=== PATIENT | male | born 1960 | race Caucasian/White ===

== ENCOUNTER 2016-04-08 21:10 | Observation (INO) | payer BC, OTHER ==
--- NOTE | 2016-04-08 21:34 | ERNOTE ---
Chest Pain/Cardiac HPI Chief Complaint: Chest Pain Time Seen by Provider: 04/08/16 21:20 Source: patient Exam Limitations: no limitations Immunizations: IMMUNIZATION HX Immunizations Up to Date Yes History of Influenza Vaccine Yes Hx Pneumococcal Vaccination No Allergies/Adverse Reactions: Allergies No Known Allergies Allergy (Unverified 10/29/14 10:14) Home Medications: HOME MEDICATIONS Fluticasone/Vilanterol [Breo Ellipta 100-25 Mcg INH] 1 inh INH DAILY 10/29/14 [ Last Taken Unknown] Isosorbide Mononitrate [Imdur] 60 mg PO DAILY 10/29/14 [Last Taken Unknown] Lisinopril [Zestril] 10 mg PO DAILY 10/29/14 [Last Taken Unknown] Nitroglycerin [Nitrostat] 0.4 mg SL Q5MIN PRN 10/29/14 [Last Taken Unknown] Simvastatin [Zocor] 20 mg PO HS 10/29/14 [Last Taken Unknown] amLODIPine BESYLATE [Norvasc] 5 mg PO DAILY 10/29/14 [Last Taken Unknown] Pantoprazole Sodium [Protonix] 20 mg PO BID 04/08/16 [Last Taken Unknown] Narrative: 56 yo M with hx of FL 2 years ago, in a small branch and not stented. had chest pain onset approx 60 min [employer]OCKRO[employer] CO[employer] and took 2 nitro with moderate reduction in his pain. He then walked 150 ft and had immediate return of his pain. took another nitro and 81 mg ASA, which brought his pain from a 10/10 to 4/10 which it remains at this time. Severity/Quality: moderate, pressure Location: substernal Chest Pain Radiation: no radiation Activities at Onset: activity Modifying Factors - Improves: Present: nitroglycerin Modifying Factors - Worsens: Present: exercise Nitro Today/Relief: 0.4 mg x 3 Aspirin Treatment Today: 81 mg x 1 Associated Symptoms: Present: shortness of breath Prior Chest Pain/Cardiac Workup: Reports: heart attack Review of Systems - Review of Systems Constitutional: Present: recent illness - uri EYE: Present: no symptoms reported ENT: Present: nasal drainage Respiratory: Present: See HPI, shortness of breath. Absent: cough Cardiology: Present: chest pain Gastrointestinal/Abdominal: Absent: nausea, vomiting Genitourinary: Absent: frequency, dysuria Musculoskeletal: Present: muscle pain - spasm of his right SCM about an hour before this episode Skin: Present: no symptoms reported Neurological: Present: no symptoms reported Endocrine: Present: no symptoms reported Hematologic/Lymphatic: Present: no symptoms reported Psych: Present: no symptoms reported - Patient's Past Medical History Patient History - Cardiac/Respiratory: COPD, Hypertension, Myocardial Infarction Patient History - Surgical Procedures: Appendectomy, Other - left knee surgery - Social History Smoking Status: Former smoker Have you smoked in the past 12 months: No Do you dip or chew tobacco: No Physical Exam - Physical Exam General Appearance: Present: wd/wn, alert, no apparent distress Eye Exam: Normal inspection: bilateral Ears, Nose, Throat: Present: normal ENT inspection, hearing grossly normal Neck: Present: normal inspection, nontender Respiratory: Present: no respiratory distress, normal breath sounds, no accessory muscle use, chest nontender, lungs clear Cardiovascular/Chest: Present: regular rate, rhythm, no murmur, normal peripheral pulses Gastrointestinal/Abdominal: Present: normal bowel sounds, nontender, nondistended, soft Extremity Exam: Present: normal inspection, non-tender, no edema Neurological Exam: Present: alert, oriented, normal mood/affect, no motor/ sensory deficits Skin Exam: Present: normal color, warm/dry Lymphatic Exam: Present: no adenopathy ED Progress - Results and Orders Patient's Lab Results:: I have reviewed the patient's lab results. Results and Orders: Laboratory Tests 04/08/16 04/08/16 04/08/16 21:40 21:40 21:40 WBC 5.5 Hgb 13.8 Hct 40.7 L Plt Count 166 PT 10.2 INR (Anticoag Therapy) 0.98 PTT (Brad) 26.8 Sodium 141 Potassium 3.6 Chloride 103 Carbon Dioxide 28.0 Anion Gap 13.6 BUN 14 Creatinine 1.32 Est GFR (Non-Af Amer) 60 Random Glucose 125 H Calcium 8.9 Calcium Adj for Albumin 8.4 Total Bilirubin 0.5 AST 35 ALT 58 Alkaline Phosphatase 73 Troponin I Less than 0.017 Total Protein 8.0 Albumin 4.2 - Vital Signs Patient's Vital Signs:: I have reviewed the patient's vital signs. Vital Signs: Vital Signs 04/08/16 21:21 Temperature 35.5 C L Pulse Rate 87 Respiratory 18 Rate Blood Pressure 145/88 O2 Sat by Pulse 96 Oximetry - EKG EKG: NSR EKG read: Interp. by me - X-Ray X-Ray #1 X-Ray: chest Interpretation: Interp. by me X-ray Comments: nothing acute - Progress/Reassessment Chief Complaint: Chest Pain Progress Note-Subjective: 04/08/16 23:38 Spoke with Farzaneh San [facility] hospitalist. She agrees to admit pt for obs, serial enzymes and telemetry Departure - Departure Clinical Impression: Chest pain Qualifiers: Chest pain type: precordial chest pain Qualified Code(s): R07.2 - Precordial pain Disposition: [facility] Condition: Good
[2016-04-08] MEDS ORDERED: ASPIRIN 81 MG TAB.CHEW PO ONE (21:35)
[2016-04-08] MEDS ORDERED: ASPIRIN 81 MG TAB.CHEW ONE (21:38)
[2016-04-08 21:42] LABS: Hematocrit 40.7 % (42.0-52.0); Hemoglobin 13.8 gm/dL (13.5-18.0); Mean Cell Volume 91.7 fl (78-100); Mean Corpuscular Hemoglobin 31.1 pg (27-31); Mean Corpuscular Hgb Conc 33.9 g/dl (32-36); Mean Platelet Volume 9.9 fl (6.0-9.5); Platelet Count 166 K/mm3 (150-450); Red Blood Count 4.44 M/mm3 (4.7-6.0); Red Cell Distribution Width 13.2 % (11.5-14.0); White Blood Count 5.5 K/mm3 (4.0-10.5)
[2016-04-08 21:47] LABS: Total Cells Counted 100
[2016-04-08 21:54] LABS: Prothrombin Time (Patient) 10.2 Seconds (9.4-11.4)
[2016-04-08 21:59] LABS: INR 0.98 INR (0.90-1.10); Partial Thrombolplastin Time 26.8 Seconds (24-32)
[2016-04-08 22:00] LABS: ALT 58 U/L (19-67); AST 35 U/L (0-48); Albumin * 4.2 gm/dl (3.4-5.0); Alkaline Phosphatase * 73 U/L (50-170); Anion Gap 13.6 mmol/L (6.8-13.8); BUN/Creatinine Ratio 10.6 (9.0-21.6); Bilirubin, Total 0.5 mg/dL (0.0-1.1); Blood Urea Nitrogen 14 mg/dL (6-23); Ca. Corrected For Albumin 8.4 mg/dL (8.4-10.2); Calcium * 8.9 mg/dL (7.9-10.9); Chloride 103 mmol/L (97-106); Glucose * 125 mg/dL (70-110); Potassium 3.6 mmol/L (3.4-4.6); Sodium 141 mmol/L (132-142)
[2016-04-08 22:02] LABS: Troponin I Less than 0.017 ng/ml (0.00-0.10)
[2016-04-08 22:22] LABS: Atypical (Reactive) Lymph 6 % (0-2); Lymphocyte 24 % (20-51); Monocyte 13 % (0-9); Neutrophil 57 % (42-75); Neutrophil # 3.1 K/mm3 (1.3-6.0)
[2016-04-08 22:25] LABS: Hypochromia 1+; Platelet Estimate Normal (NORMAL)
--- NOTE | 2016-04-09 00:09 | HP ---
Chief Complaint - Chief Complaint Date of Service: 04/09/16 Time of Service: 00:08 Chief Complaint: CP r/o History of Present Illness: Pt is a 56 yo M with a PMH significant for: WI, HTN, COPD whose see Dr. Davalos in [place]. He presented to [facility] ER this evening with complaints of CP approximately 9:30pm and took 2 nitro with moderated reduction in his pain. He then walked 150 ft and had immediate return of his pain, so he took another nitro and 81 mg ASA, which brought his pain from a 10/10 to 4/10 which it remained during his time here. Pt describes the pain as heaviness in his left chest, nonradiating. Endorses SOB and an hour prior to this pain he had a muscle spasm in the right side of his neck. So much so he wasn't able to do his job. He states that this was completely different than his previous WI which presented as indigestion. In the ER troponins were negative, chest xray clear, and vitals remained stable. EKG was without changes. Given his risk factors (age , sex, HTN, previous WI) he will be admitted to observation overnight for serial troponins and continuous cardiac monitoring. - Patient's Past Medical History Patient History - Medical: GERD, Migraines Patient History - Cardiac/Respiratory: COPD, Hypertension, Myocardial Infarction Patient History - Cancer: No Hx of Cancer Patient History - Surgical Procedures: Appendectomy, T & A, Other - left knee surgery Patient History - Other: None - Family History Father Family History - Medical: No pertinent hx Mother Family History - Medical: No pertinent hx Family History - Cardiac/Respiratory: No pertinent hx - Social History Living Situations: home Does anyone smoke in the home?: No Smoking Status: Former smoker Have you smoked in the past 12 months: No Do you dip or chew tobacco: No Alcohol Use: none Drug Use: none - Immunizations Immunizations Up to Date: Yes Hx Pneumococcal Vaccination: No History of Influenza Vaccine: Yes Review Of Systems (GEN) - Review of Systems Generalized/Overall Review: Present: No Symptoms Reported EENTM: Present: No Symptoms Reported Respiratory: Present: No Symptoms Reported Cardiac: Present: No Symptoms Reported Abdominal: Present: No Symptoms Reported Genitourinary: Present: No Symptoms Reported Musculoskeletal: Present: No Symptoms Reported Neurological: Present: No Symptoms Reported Skin: Present: No Symptoms Reported Endocrine: Present: No Symptoms Reported Allergies/Adverse Reactions: Allergies Allergy/AdvReac Type Severity Reaction Status Date / Time No Known Allergies Allergy Unverified 10/29/14 10:14 Home Medications: HOME MEDICATIONS Fluticasone/Vilanterol [Breo Ellipta 100-25 Mcg INH] 1 inh INH DAILY 10/29/14 [ Last Taken Unknown] Isosorbide Mononitrate [Imdur] 60 mg PO DAILY 10/29/14 [Last Taken Unknown] Lisinopril [Zestril] 10 mg PO DAILY 10/29/14 [Last Taken Unknown] Nitroglycerin [Nitrostat] 0.4 mg SL Q5MIN PRN 10/29/14 [Last Taken Unknown] Simvastatin [Zocor] 20 mg PO HS 10/29/14 [Last Taken Unknown] amLODIPine BESYLATE [Norvasc] 5 mg PO DAILY 10/29/14 [Last Taken Unknown] Pantoprazole Sodium [Protonix] 20 mg PO BID 04/08/16 [Last Taken Unknown] Albuterol Sulfate [Ventolin HFA] 1 puff IH Q6H PRN 04/09/16 [Last Taken Unknown] Exam - Exam Vital Signs: Vital Signs - Last Taken Temp 35.5 C L 04/08/16 21:21 Pulse 77 04/08/16 23:00 Resp 16 04/08/16 23:00 BP 126/84 04/08/16 23:00 Pulse Ox 92 RA 04/08/16 23:00 Constitutional: Present: Alert, Oriented x3, Cooperative, No distress ENT Exam: Present: normal ENT inspection, hearing grossly normal Eye Exam: bilateral eye: normal inspection, PERRL Back Exam: Present: normal inspection Respiratory: Present: chest non-tender, lungs clear, normal breath sounds, no respiratory distress, no accessory muscle use Cardiovascular/Chest: Present: normal peripheral pulses, regular rate, rhythm, no chest tenderness, no edema, no murmur Peripheral Pulses: dorsalis-pedis (R): 2+, dorsalis-pedis (L): 2+, radial (R): 2 +, radial (L): 2+ Abdomen: Present: Normal bowel sounds, soft, nontender, nondistended, no rebound tenderness Extremity: Present: normal range of motion, non-tender, normal inspection, no pedal edema, no calf tenderness, normal capillary refill Skin Exam: Present: normal color, warm/dry, no cyanosis Neurologic: Present: no motor/sensory deficits, alert, normal mood/affect, oriented x 3 Appearance: Present: appropriate appearance, appropriate insight, neat Eye contact: Present: cooperative, good eye contact, normal speech Thoughts: Present: normal thought pattern, no apparent hallucination Diagnostic Studies: Laboratory Results Laboratory Tests 04/08/16 04/08/16 04/08/16 21:40 21:40 21:40 WBC 5.5 Hgb 13.8 Hct 40.7 L Plt Count 166 PT 10.2 INR (Anticoag Therapy) 0.98 PTT (Brad) 26.8 Sodium 141 Potassium 3.6 Chloride 103 Carbon Dioxide 28.0 BUN 14 Creatinine 1.32 Troponin I Less than 0.017 Assessment/Plan - Assessment/Plan (1) Chest pain Assessment: Pt will be admitted to observation overnight. Given his prior WI history, age, and risk factors he is high risk for another AMI. Complete serial troponins overnight and place on continuous cardiac monitoring to monitor for any arrhythmias overnight. -VS Q4H -Continuous telemetry -Repeat Troponin 0340 Problem: Acute Qualifiers: Chest pain type: precordial chest pain Qualified Code(s): R07.2 - Precordial pain (2) HTN (hypertension) Assessment: Stable -Lisinopril 10mg daily -Imdur 60mg daily -Norvasc 5mg daily Problem: Chronic (3) HLD (hyperlipidemia) Assessment: Stable -Zocor 20mg HS Problem: Chronic (4) COPD (chronic obstructive pulmonary disease) Assessment: Stable Problem: Chronic
[2016-04-09] MEDS: ACETAMINOPHEN 325 MG TABLET PO PRN ×2 (04:40→08:50)
[2016-04-09 08:06] LABS: Chol/HDL Risk Ratio 3.3 mg/dL (3.3-5.0)
--- NOTE | 2016-04-09 08:12 | DS ---
(1) Chest pain Problem: Resolved Qualifiers: Chest pain type: precordial chest pain Qualified Code(s): R07.2 - Precordial pain (2) HLD (hyperlipidemia) Problem: Chronic (3) HTN (hypertension) Problem: Chronic Qualifiers: Hypertension type: essential hypertension Qualified Code(s): I10 - Essential (primary) hypertension Description of Stay: Date of Admission: 04/08/16 Date of Discharge : 04/09/16 Hospital Course: 56 years old male adm to the hospital overnight due to reports of pressure in the chest radiating to the back. He took nitro tab x2 and aspirin 81mg before coming to the hospital. Pt with PMH of SD, hyperlipidemia and hypertension. Serial troponins negative, CXR no acute cardiopulmonary findings, and EKG remain NSR. He denies further chest pain, no nausea, vomiting, diaphoresis, palpitation, shortness of breath during adm. He remain medically stable during adm and will continue with his home dose of Zestril, zocor, norvasc, aspirin and imdur. Pt already have schedule appt with textile cutting machine operator in 1-2 weeks. He can schedule for out-pt stress test. Diagnostic test: CXR: No acute cardiopulmonary findings. New Medications: None, resume home medications and follow up with PCP. Procedures Performed: none Results and Findings: Laboratory Tests 04/08/16 04/08/16 04/08/16 21:40 21:40 21:40 WBC 5.5 RBC 4.44 L Hgb 13.8 PT 10.2 INR (Anticoag Therapy) 0.98 PTT (Brad) 26.8 Sodium 141 Potassium 3.6 AST 35 ALT 58 Alkaline Phosphatase 73 Troponin I Less than 0.017 04/09/16 03:40 WBC RBC Hgb PT INR (Anticoag Therapy) PTT (Brad) Sodium Potassium AST ALT Alkaline Phosphatase Troponin I Less than 0.017 Discharge Disposition: Home self care Disposition: Home self-care Condition: Stable Discharge Activity: Activity as tolerated Discharge Diet: Low fat/chol Additional Patient Instructions (free text): Follow up with your textile cutting machine operator as schedule and may see PCP 3-7 days call for appointment. Complete Home Medications List: Complete Home Medication List: Fluticasone/Vilanterol [Breo Ellipta 100-25 Mcg INH] 1 inh INH DAILY 10/29/14 Isosorbide Mononitrate [Imdur] 60 mg PO DAILY 10/29/14 Lisinopril [Zestril] 10 mg PO DAILY 10/29/14 Nitroglycerin [Nitrostat] 0.4 mg SL Q5MIN PRN 10/29/14 Simvastatin [Zocor] 20 mg PO HS 10/29/14 amLODIPine BESYLATE [Norvasc] 5 mg PO DAILY 10/29/14 Pantoprazole Sodium [Protonix] 20 mg PO BID 04/08/16 Albuterol Sulfate [Ventolin HFA] 1 puff IH Q6H PRN 04/09/16 Ustekinumab [Stelara] 90 mg SQ Q90D 04/09/16
[2016-04-09 08:30] VITALS: BP 134/72
[2016-04-09] MEDS ORDERED: ISOSORBIDE MONONITRATE 60 MG TAB.SR.24H PO SCH (09:00)
[2016-04-09] MEDS ORDERED: LISINOPRIL 10 MG TABLET PO SCH (09:00)
[2016-04-09] MEDS ORDERED: PANTOPRAZOLE SODIUM 20 MG TABLET.DR PO SCH (09:00)
[2016-04-09] MEDS ORDERED: amLODIPine BESYLATE 5 MG TABLET PO SCH (09:00)
[2016-04-09] MEDS ORDERED: NON-FORMULARY 1 DOSE DOSE (Fluticasone/Vilanterol [Breo Ellipta 100-25 Mcg Inh] 1 INH) INH SCH (09:00)
[2016-04-09] MEDS ORDERED: SIMVASTATIN 20 MG TABLET PO SCH (21:00)
== END 2016-04-09 13:50 | disposition home or self-care (01) ==
LOC: ER 21:10 → MS 23:42
PROVIDERS: ADMIT Nurse Practitioner Gerontology; ATTEND Family Medicine
DX: E78.5 Hyperlipidemia, unspecified (principal); I10 Essential (primary) hypertension; K21.9 Gastro-esophageal reflux disease without esophagitis; Z87.891 Personal history of nicotine dependence; I25.2 Old myocardial infarction
CPT/HCPCS: 36415; 71020; 80053; 80061; 84484; 85007; 85025; 85610; 85730; 93005; 99284; G0378

== ENCOUNTER 2018-07-17 08:28 | Observation (INO) ==
[2018-07-17] MEDS ORDERED: NITROGLYCERIN 0.4 MG/TAB BTL SL ONE ×3 (08:51→09:11)
--- NOTE | 2018-07-17 08:53 | ERNOTE ---
Chest Pain/Cardiac HPI Chief Complaint: Chest Pain Time Seen by Provider: 07/17/18 08:41 Source: patient Exam Limitations: no limitations Immunizations: IMMUNIZATION HX Immunizations Up to Date Yes History of Influenza Vaccine No Hx Pneumococcal Vaccination No Allergies/Adverse Reactions: Allergies hydromorphone [From Dilaudid] Adverse Reaction (Intermediate, Verified 07/17/18 11:32) hallucinations tramadol [From Ultram] Adverse Reaction (Intermediate, Verified 07/17/18 11:32) visual changes Home Medications: HOME MEDICATIONS Isosorbide Mononitrate [Imdur] 60 mg PO DAILY 10/29/14 [Last Taken Unknown] Lisinopril [Zestril] 10 mg PO DAILY 10/29/14 [Last Taken Unknown] Nitroglycerin [Nitrostat] 0.4 mg SL Q5MIN PRN 10/29/14 [Last Taken Unknown] Simvastatin [Zocor] 20 mg PO HS 10/29/14 [Last Taken Unknown] amLODIPine BESYLATE [Norvasc] 5 mg PO DAILY 10/29/14 [Last Taken Unknown] Pantoprazole Sodium [Protonix] 40 mg PO BID 04/08/16 [Last Taken Unknown] Ustekinumab [Stelara] 90 mg SQ Q90D 04/09/16 [Last Taken Unknown] Aspirin 81 mg PO DAILY 07/17/18 [Last Taken Unknown] Cyclobenzaprine HCl 10 mg PO BID PRN 07/17/18 [Last Taken Unknown] Gabapentin [Neurontin] 100 mg PO TID 07/17/18 [Last Taken Unknown] Metoprolol Succinate [Toprol Xl] 25 mg PO DAILY 07/17/18 [Last Taken Unknown] Naproxen Sodium [Aleve] 220 mg PO BID PRN 07/17/18 [Last Taken Unknown] Narrative: Patient woke up with chest pain today, central, radiating down his arm, no other associated symptoms, took nitro ( at least a year old) and four aspirin, pain is currently at 3/10. Patient had an WI in 2014 (no stent placed as distal lesion) , has been doing well except one episode of chest pain two years ago. He had his right hip replaced four months ago, has been back to work and recently injured his hamstring, taking aleve and gabapentin for that, states that he had blood work during the hospital stay and was told that he has borderline diabetes Date (Duration): 07/17/18 Time (Timing): 04:00 Timing: constant Severity/Quality: mild, pressure Location: central Chest Pain Radiation: arms Activities at Onset: sleep Modifying Factors - Improves: Present: nitroglycerin Modifying Factors - Worsens: Present: exercise. Absent: breathing, movement Nitro Today/Relief: 0.4 mg x 3 Aspirin Treatment Today: 81 mg x 4, provided at home Associated Symptoms: Absent: headache, dizziness, shortness of breath, fever/chills, nausea, vomiting, abdominal pain Prior Chest Pain/Cardiac Workup: Reports: prior chest pain, heart attack Prior Treatment: Denies: recently seen Review of Systems - Review of Systems Constitutional: Absent: recent illness, fever ENT: Absent: nose congestion, sore throat Respiratory: Absent: shortness of breath Cardiology: Present: chest pain Gastrointestinal/Abdominal: Absent: nausea, vomiting, abdominal pain Genitourinary: Present: no symptoms reported Musculoskeletal: Absent: back pain Neurological: Absent: headache, weakness, numbness Medical History (Updated 07/17/18 @ 10:38 by Ene Cobb MD) Hypercholesteremia Hypertension Myocardial infarct left thumb surgery scope to left knee Surgical History: Surgical History (Updated 07/17/18 @ 08:59 by Annamarie Briggs RN) H/O total hip arthroplasty History of appendectomy Hx of tonsillectomy Family History: Family History (Last Updated 07/17/18 @ 09:00 by Annamarie Briggs, RN) Mother Myocardial infarction Hypertension Father Cancer Brother Myocardial infarction Social History: Preferred Language [place] Do you have any church or No cultural preference? Smoking Status Never smoker Have you smoked in the past 12 No months Do you dip or chew tobacco No Abuse History No History of abuse Psych History No pertinent hx Alcohol Use none Drug Use none No Social History Section defined Physical Exam - Physical Exam General Appearance: Present: wd/wn, alert, no apparent distress Head Exam: Present: normal inspection Respiratory: Present: no respiratory distress, normal breath sounds, no accessory muscle use, chest nontender, lungs clear Cardiovascular/Chest: Present: regular rate, rhythm, no murmur Gastrointestinal/Abdominal: Present: normal bowel sounds, nontender, nondistended, soft Extremity Exam: Present: no edema Neurological Exam: Present: alert, oriented, normal mood/affect Skin Exam: Present: normal color, warm/dry Progress - Results and Orders Patient's Lab Results:: I have reviewed the patient's lab results. - Vital Signs Patient's Vital Signs:: I have reviewed the patient's vital signs. Vital Signs: Vital Signs 07/17/18 08:41 Temperature 35.8 C L Pulse Rate 100 Respiratory Rate 20 Blood Pressure 130/89 - EKG EKG #1 EKG: NSR - sinustachycardia at 101, no ST T wave changes, unchanged from - 2017 except for rate EKG read: Interp. by me - X-Ray X-Ray #1 X-Ray: chest - no acute changes Interpretation: Reviewed by me - Progress/Reassessment Chief Complaint: Chest Pain Progress Note-Subjective: 07/17/18 09:11 minimal relieve after first nitro here 07/17/18 09:17 no change with second nitro 07/17/18 10:29 discussed test results with patient and diagnosis of diabetes 07/17/18 10:[address] Perez, okay to admit for chest pain and diabetic ketosis, since not acidotic will not start drip but give IV insulin Departure Clinical Impression: Diabetic ketosis Chest pain Qualifiers: Chest pain type: unspecified Qualified Code(s): R07.9 - Chest pain, unspecified - Departure Disposition: Still a patient Condition: Stable
[2018-07-17 09:06] LABS: Hematocrit 43.2 % (42.0-52.0); Hemoglobin 14.6 gm/dL (13.5-18.0); Mean Cell Volume 87.3 fl (78-100); Mean Corpuscular Hemoglobin 29.5 pg (27-31); Mean Corpuscular Hgb Conc 33.8 g/dl (32-36); Mean Platelet Volume 11.2 fl (8-11.3); Neutrophil # 5.1 K/mm3 (1.3-6.0); Neutrophil % 72.6 % (42-75.0); Platelet Count 194 K/mm3 (150-450); Red Blood Count 4.95 M/mm3 (4.7-6.0); Red Cell Distribution Width 12.6 % (11.5-14.0)
[2018-07-17 09:21] LABS: ALT 32 U/L (19-67); AST 28 U/L (0-48); Albumin * 4.3 gm/dl (3.4-5.0); Alkaline Phosphatase * 152 U/L (50-170); Anion Gap 23.6 mmol/L (6.8-13.8); Bilirubin, Total 0.9 mg/dL (0.0-1.1); Blood Urea Nitrogen 30 mg/dL (6-23); Ca. Corrected For Albumin 8.6 mg/dL (8.4-10.2); Calcium * 9.2 mg/dL (7.9-10.9); Carbon Dioxide 18.2 mmol/L (24-32.6); Chloride 87 mmol/L (97-106); Potassium 4.8 mmol/L (3.4-4.6); Sodium 124 mmol/L (132-142); Total Protein 8.7 gm/dL (6.2-8.2)
[2018-07-17 09:23] LABS: Troponin I Less than 0.017 ng/mL (0.00-0.10)
[2018-07-17 09:24] LABS: Glucose * 701 mg/dL (70-110)
[2018-07-17] MEDS ORDERED: NORMAL SALINE 1,000 ML IV ONE ×3 (09:49→17:03)
[2018-07-17 10:02] LABS: Urine Bilirubin Negative (NEGATIVE); Urine Ketone 15 mg/dL (NEGATIVE); Urine Nitrite Negative (NEGATIVE); Urine Protein Negative (NEGATIVE); Urine Specific Gravity <=1.005 SP.GR. (1.005-1.030); Urine Urobilinogen Normal (NORMAL); Urine pH 5.5 pH (5.0-7.0)
[2018-07-17 10:12] LABS: Urine Appearance Clear (CLEAR); Urine Bacteria None Seen; Urine Blood 5 /ul (NEGATIVE); Urine Color Yellow; Urine RBC 0-5 /hpf (0-5); Urine WBC 0-5 /hpf (0-5)
[2018-07-17] MEDS ORDERED: INSULIN REGULAR, HUMAN 100 UNITS/ML VIAL IV ONE (10:34)
[2018-07-17] MEDS ORDERED: ACETAMINOPHEN 500 MG TABLET PO PRN (12:14)
[2018-07-17] MEDS ORDERED: FAMOTIDINE 20 MG TABLET PO SCH (12:37)
[2018-07-17] MEDS: ASPIRIN 81 MG TAB.CHEW PO SCH (12:38)
--- NOTE | 2018-07-17 12:43 | HP ---
Chief Complaint - Chief Complaint Date of Service: 07/17/18 Time of Service: 12:28 Chief Complaint: I had chest pain this morning History of Present Illness: 58-year-old male with past medical history of hypertension, hyperlipidemia, old IA, COPD was admitted to our facility due to sudden onset chest pain of 8 out of 10 in intensity radiating to the left arm and to the neck area with no associated symptoms that started this morning when the patient woke up from bed. Patient had an IA 1 year ago that presented the same way as this morning episode so he became concerned enough to come to our ER. He denies any shortness of breath or dizziness but said that the chest discomfort felt like indigestion. Patient denies any occurrence of this chest pain since his old IA and denies any recent changes in his health that could have precipitated this morning's episode. Patient reports taking a nitroglycerin for the chest pain but the pain did not resolve. Medical History (Updated 07/17/18 @ 11:46 by Elma Sullivan RN) Borderline diabetes Hypercholesteremia Hypertension Myocardial infarct 2015 left thumb surgery Surgical History: Surgical History (Updated 07/17/18 @ 11:45 by Elma Sullivan RN) H/O left knee surgery bone removal H/O total hip arthroplasty History of appendectomy History of carpal tunnel surgery of right wrist Hx of tonsillectomy Family History: Family History (Last Reviewed 07/17/18 @ 11:46 by Elma Sullivan RN) Mother Myocardial infarction Hypertension Father Cancer Brother Myocardial infarction Social History: Patient Lives/Resources With Spouse Utilized Occupation [employer] worker Preferred Language Vietnamese Do you have any zoroastrian or Yes: Anabaptism/Adventist cultural preference? Smoking Status Former smoker Have you smoked in the past 12 No months Do you dip or chew tobacco No Abuse History No History of abuse Psych History No pertinent hx Alcohol Use none Drug Use none No Social History Section defined Peds Patient Hx - Developmental: No Pertinent Hx Peds Patient Hx - Medical: No Pertinent Hx Peds Patient Hx - Cardiac/Respiratory: No Pertinent Hx Peds Patient Hx - Surgical: No Surgical History Patient History - Cancer: No Hx of Cancer Review Of Systems (GEN) - Review of Systems Generalized/Overall Review: Present: No Symptoms Reported EENTM: Present: No Symptoms Reported Respiratory: Present: No Symptoms Reported Cardiac: Present: Chest Pain Abdominal: Present: No Symptoms Reported Genitourinary: Present: No Symptoms Reported Musculoskeletal: Present: No Symptoms Reported Neurological: Present: No Symptoms Reported Skin: Present: No Symptoms Reported Endocrine: Present: No Symptoms Reported Immunizations: IMMUNIZATION HX Immunizations Up to Date Yes History of Influenza Vaccine No Hx Pneumococcal Vaccination No Allergies/Adverse Reactions: Allergies Allergy/AdvReac Type Severity Reaction Status Date / Time hydromorphone [From Dilaudid] AdvReac Intermediate hallucinati Verified 07/17/18 11:32 ons tramadol [From Ultram] AdvReac Intermediate visual Verified 07/17/18 11:32 changes Home Medications: HOME MEDICATIONS Isosorbide Mononitrate [Imdur] 60 mg PO DAILY 10/29/14 [Last Taken Unknown] Lisinopril [Zestril] 10 mg PO DAILY 10/29/14 [Last Taken 07/17/18 04:00] Nitroglycerin [Nitrostat] 0.4 mg SL Q5MIN PRN 10/29/14 [Last Taken 07/17/18 04:00] Simvastatin [Zocor] 20 mg PO HS 10/29/14 [Last Taken Unknown] amLODIPine BESYLATE [Norvasc] 5 mg PO DAILY 10/29/14 [Last Taken 07/17/18 04:00] Pantoprazole Sodium [Protonix] 40 mg PO DAILY 04/08/16 [Last Taken 07/17/18 04:00] Ustekinumab [Stelara] 90 mg SQ Q90D 04/09/16 [Last Taken Unknown] Aspirin 81 mg PO DAILY 07/17/18 [Last Taken 07/17/18 04:00] Cyclobenzaprine HCl 10 mg PO BID PRN 07/17/18 [Last Taken Unknown] Gabapentin [Neurontin] 100 mg PO TID 07/17/18 [Last Taken 07/17/18 04:00] Metoprolol Succinate [Toprol Xl] 25 mg PO HS 07/17/18 [Last Taken 07/17/18 10:00] Naproxen Sodium [Aleve] 220 mg PO BID PRN 07/17/18 [Last Taken Unknown] Exam - Exam Vital Signs: Vital Signs - Last Taken Temp 37.1 C 07/17/18 11:49 Pulse 106 H 07/17/18 11:49 Resp 16 04/15/19 11:49 BP 119/85 07/17/18 11:49 Pulse Ox 97 07/17/18 11:49 Constitutional: Present: Alert, Oriented x3, Cooperative, Well developed, Well nourished, No distress ENT Exam: Present: normal ENT inspection, hearing grossly normal, pharynx normal, TMs normal Eye Exam: bilateral eye: normal inspection, PERRL, EOMI Neck: Present: non-tender, full range of motion, supple, normal inspection, trachea midline Back Exam: Present: normal inspection, no CVA tenderness, no vertebral tenderness Breasts: Present: Exam deferred Respiratory: Present: chest non-tender, lungs clear, normal breath sounds, no respiratory distress, no accessory muscle use Cardiovascular/Chest: Present: normal peripheral pulses, regular rate, rhythm, no chest tenderness, no edema, no gallop, no JVD, no murmur Peripheral Pulses: carotid (R): 4+, carotid (L): 4+, femoral (R): 4+, femoral (L): 4+, dorsalis-pedis (R): 4+, dorsalis-pedis (L): 4+ Abdomen: Present: Normal bowel sounds, soft, nontender, nondistended, no rebound tenderness, no hepatospenomegaly, no masses, obese /Rectal: Present: Exam deferred Skin Exam: Present: normal color, warm/dry, no cyanosis Lymphatic: Present: no adenopathy Neurologic: Present: 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, normal cerebellar test, no motor/sensory deficits, alert, normal mood/affect, oriented x 3 Appearance: Present: appropriate appearance, appropriate insight, neat, no memory impairment Eye contact: Present: cooperative, good eye contact, normal speech Thoughts: Present: normal thought pattern, no apparent hallucination Diagnostic Studies: Abnormal Lab Results 07/17/18 07/17/18 07/17/18 Range/Units 08:40 09:00 09:49 Lymphocytes % 18.1 L (20-51) % Lymphocytes # 1.27 L (1.5-3.5) k/mm3 Sodium 124 L (132-142) mmol/L Potassium 4.8 H (3.4-4.6) mmol/L Chloride 87 L (97-106) mmol/L Carbon Dioxide 18.2 L (24-32.6) mmol/L Anion Gap 23.6 H (6.8-13.8) mmol/L BUN 30 H (6-23) mg/dL Creatinine 1.67 H (0.4-1.4) mg/dL Est GFR (Non-Af Amer) 45 L D (60-130) mL/min Random Glucose 701 H* (70-110) mg/dL Total Protein 8.7 H (6.2-8.2) gm/dL Urine Glucose (UA) >=1000 H (NEGATIVE) mg/dL Urine Blood 5 H (NEGATIVE) /ul Serum Ketones (NEGATIVE) 07/17/18 Range/Units 09:58 Lymphocytes % (20-51) % Lymphocytes # (1.5-3.5) k/mm3 Sodium (132-142) mmol/L Potassium (3.4-4.6) mmol/L Chloride (97-106) mmol/L Carbon Dioxide (24-32.6) mmol/L Anion Gap (6.8-13.8) mmol/L BUN (6-23) mg/dL Creatinine (0.4-1.4) mg/dL Est GFR (Non-Af Amer) (60-130) mL/min Random Glucose (70-110) mg/dL Total Protein (6.2-8.2) gm/dL Urine Glucose (UA) (NEGATIVE) mg/dL Urine Blood (NEGATIVE) /ul Serum Ketones Positive - 20mg/dl H (NEGATIVE) Laboratory Results WBC 7.0 K/mm3 (4.0-10.5) 07/17/18 08:40 RBC 4.95 M/mm3 (4.7-6.0) 07/17/18 08:40 Hgb 14.6 gm/dL (13.5-18.0) 07/17/18 08:40 Hct 43.2 % (42.0-52.0) 07/17/18 08:40 MCV 87.3 fl (78-100) 07/17/18 08:40 MCH 29.5 pg (27-31) 07/17/18 08:40 MCHC 33.8 g/dl (32-36) 07/17/18 08:40 RDW 12.6 % (11.5-14.0) 07/17/18 08:40 Plt Count 194 K/mm3 (150-450) 07/17/18 08:40 MPV 11.2 fl (8-11.3) 07/17/18 08:40 Immature Gran % (Auto) 0.40 % (0.001-0.429) 07/17/18 08:40 Immature Gran # (Auto) 0.03 K/mm3 (0.000-0.0310) 07/17/18 08:40 72.6 % (42-75.0) 07/17/18 08:40 18.1 % (20-51) L 07/17/18 08:40 7.6 % (0.0-9) 07/17/18 08:40 0.9 % (0.0-3.0) 07/17/18 08:40 0.4 % (0.0-1.0) 07/17/18 08:40 Nucleated RBC % 0.0 k/mm3 (0-1) 07/17/18 08:40 5.1 K/mm3 (1.3-6.0) 07/17/18 08:40 1.27 k/mm3 (1.5-3.5) L 07/17/18 08:40 0.5 k/mm3 (0.0-1.0) 07/17/18 08:40 0.1 k/mm3 (0.0-0.7) 07/17/18 08:40 Absolute Basophils 0.0 k/mm3 (0.0-0.1) 07/17/18 08:40 VBG pH 7.372 (7.32-7.43) 07/17/18 09:58 Sodium 124 mmol/L (132-142) L 07/17/18 09:00 134 mmol/L (130-142) 07/17/18 09:00 Potassium 4.8 mmol/L (3.4-4.6) H 07/17/18 09:00 Chloride 87 mmol/L (97-106) L 07/17/18 09:00 Carbon Dioxide 18.2 mmol/L (24-32.6) L 07/17/18 09:00 23.6 mmol/L (6.8-13.8) H 07/17/18 09:00 BUN 30 mg/dL (6-23) H 07/17/18 09:00 1.67 mg/dL (0.4-1.4) H 07/17/18 09:00 Est GFR (Non-Af Amer) 45 mL/min (60-130) L D 07/17/18 09:00 18.0 (9.0-21.6) 07/17/18 09:00 701 mg/dL (70-110) H* 07/17/18 09:00 Calcium 9.2 mg/dL (7.9-10.9) 07/17/18 09:00 Calcium Adj for Albumin 8.6 mg/dL (8.4-10.2) 07/17/18 09:00 0.9 mg/dL (0.0-1.1) 07/17/18 09:00 AST 28 U/L (0-48) 07/17/18 09:00 ALT 32 U/L (19-67) 07/17/18 09:00 152 U/L (50-170) 07/17/18 09:00 Less than 0.017 ng/mL (0.00-0.10) 07/17/18 09:00 8.7 gm/dL (6.2-8.2) H 07/17/18 09:00 4.3 gm/dl (3.4-5.0) 07/17/18 09:00 Yellow 07/17/18 09:49 Clear (CLEAR) 07/17/18 09:49 5.5 pH (5.0-7.0) 04 09:49 Ur Specific [place] <=1.005 SP.GR. (1.005-1.030) 07/17/18 09:49 Negative mg/dL (NEGATIVE) 07/17/18 09:49 >=1000 mg/dL (NEGATIVE) H 07/17/18 09:49 15 mg/dL (NEGATIVE) 07/17/18 09:49 5 /ul (NEGATIVE) H 07/17/18 09:49 Negative (NEGATIVE) 07/17/18 09:49 Negative mg/dl (NEGATIVE) 07/17/18 09:49 Normal EU/dl (NORMAL) 07/17/18 09:49 Ur Leukocyte Esterase Negative /ul (NEGATIVE) 07/17/18 09:49 0-5 /hpf (0-5) 07/17/18 09:49 0-5 /hpf (0-5) 07/17/18 09:49 Ur Epithelial Cells 0-5 /hpf (0-5) 07/17/18 09:49 None seen (NONE) 07/17/18 09:49 No culture indicated 07/17/18 09:49 Positive - 20mg/dl (NEGATIVE) H 07/17/18 09:58 Assessment/Plan - Narrative Narrative: Once in our ER patient was evaluated by the ER physician and was found to have chest pain radiating to his left arm so EKG and cardiac troponins were ordered which were both negative. Patient was also treated with aspirin and nitroglycerin. ER labs also demonstrated severe hyperglycemia with positive ket ones but normal pH. Patient was treated with IV fluids and IV insulin which improved the glucose level. During bedside evaluation once in [facility] patient was found to be afebrile and in no acute distress and denied chest pain at the moment. However after having a couple of bites of his lunch reported chest discomfort similar to what he had this morning, therefore antacids were administered to patient for possible indigestion. We will repeat cardiac troponin later this evening and continue to monitor patient for chest pain. Patient was also informed that he is diabetic because he was unaware, insulin regimen was calculated per his weight and was ordered to be administered in the evenings and with meals as well as a as a sliding scale for adequate coverage. He was also placed on a diabetic diet. - Assessment/Plan (1) Chest pain Problem: Acute Qualifiers: Chest pain type: unspecified Qualified Code(s): R07.9 - Chest pain, unspecified (2) Ruled out for myocardial infarction Problem: Acute (3) Diabetic ketosis Problem: Acute (4) Diabetes 1.5, managed as type 2 Problem: Acute (5) CAD (coronary artery disease) Problem: Acute (6) Old IA (myocardial infarction) Problem: Acute
[2018-07-17] MEDS: INSULIN LISPRO 100 UNITS/ML VIAL SC SCH ×3 (12:57→21:18)
[2018-07-17] MEDS ORDERED: NAPROXEN SODIUM 220 MG TABLET PO PRN (16:14)
[2018-07-17] MEDS ORDERED: NITROGLYCERIN 0.4 MG/TAB BTL SL PRN (16:14)
[2018-07-17] MEDS ORDERED: CYCLOBENZAPRINE HCL 10 MG TABLET PO PRN (16:14)
[2018-07-17] MEDS: GABAPENTIN 100 MG CAPSULE PO SCH (16:48)
[2018-07-17] MEDS ORDERED: NORMAL SALINE 1,000 ML IV PRN ×2 (20:00→21:16)
[2018-07-17] MEDS ORDERED: METOPROLOL SUCCINATE 25 MG TABLET.SA PO SCH (21:00)
[2018-07-17] MEDS ORDERED: INSULIN GLARGINE,HUM.REC.ANLOG 100 UNITS/ML VIAL SC SCH (21:00)
[2018-07-17] MEDS ORDERED: SIMVASTATIN 20 MG TABLET PO SCH (21:00)
[2018-07-18] MEDS: INSULIN LISPRO 100 UNITS/ML VIAL SC PRN ×2 (01:33→05:26)
[2018-07-18 06:07] LABS: ALT 34 U/L (19-67); AST 47 U/L (0-48); Albumin * 3.3 gm/dl (3.4-5.0); Alkaline Phosphatase * 123 U/L (50-170); Anion Gap 12.1 mmol/L (6.8-13.8); BUN/Creatinine Ratio 24.8 (9.0-21.6); Bilirubin, Total 0.5 mg/dL (0.0-1.1); Blood Urea Nitrogen 26 mg/dL (6-23); Ca. Corrected For Albumin 8.4 mg/dL (8.4-10.2); Calcium * 8.2 mg/dL (7.9-10.9); Carbon Dioxide 24.6 mmol/L (24-32.6); Chloride 102 mmol/L (97-106); Glucose * 253 mg/dL (70-110); Potassium 3.7 mmol/L (3.4-4.6); Sodium 135 mmol/L (132-142); Total Protein 7.1 gm/dL (6.2-8.2)
[2018-07-18] MEDS ORDERED: PANTOPRAZOLE SODIUM 40 MG TABLET.EC PO SCH (07:00)
[2018-07-18] MEDS: INSULIN LISPRO 100 UNITS/ML VIAL SC SCH (07:02)
[2018-07-18] MEDS: GABAPENTIN 100 MG CAPSULE PO SCH (08:34)
[2018-07-18] MEDS: ASPIRIN 81 MG TAB.CHEW PO SCH (08:34)
[2018-07-18] MEDS ORDERED: ISOSORBIDE MONONITRATE 60 MG TAB.SR.24H PO SCH (09:00)
[2018-07-18] MEDS ORDERED: amLODIPine BESYLATE 5 MG TABLET PO SCH (09:00)
[2018-07-18] MEDS ORDERED: ASPIRIN 81 MG TAB.CHEW PO SCH (09:00)
[2018-07-18] MEDS ORDERED: LISINOPRIL 10 MG TABLET PO SCH (09:00)
[2018-07-18] MEDS ORDERED: FAMOTIDINE 20 MG TABLET PO SCH (09:00)
[2018-07-18 10:50] LABS: Hemoglobin A1C 10.8 % (4.00-6.0)
--- NOTE | 2018-07-18 11:07 | DS ---
(1) Chest pain Problem: Resolved Qualifiers: Chest pain type: unspecified Qualified Code(s): R07.9 - Chest pain, unspecified (2) Ruled out for myocardial infarction Problem: Resolved (3) Diabetic ketosis Problem: Resolved (4) Diabetes 1.5, managed as type 2 Problem: Acute (5) CAD (coronary artery disease) Problem: Chronic (6) Old IA (myocardial infarction) Problem: Chronic Description of Stay: 58-year-old male admitted for chest pain radiating to the left upper extremity as well as diabetic ketosis and newly diagnosed type 2 diabetes was evaluated at bedside and was found to be afebrile and in no acute distress. Patient denies recurrence of chest pain and reports having only discomfort with meals and his epigastric region. He was treated with antacids and was instructed to continue taking them after discharge. Patient's second troponin was negative for IA and the EKG was negative as well. During his hospitalization he was treated with insulin and IV fluids to address his hyperglycemia. Dextrose readings this morning were found to be near normal levels and adequately controlled. Given these findings decision to discharge patient home with instructions to follow-up with his PCP and to take the prescribed medications as instructed. Patient is also instructed to check his blood sugars regularly and to consume a diabetic diet. Outpatient consultation with the dietitian for diabetic education will be arranged and patient will be provided with a prescription for glucometer and testing strips. Procedures Performed: none Results and Findings: Lab Pending Results 07/17/18 08:40: WBC 7.0, RBC 4.95, Hgb 14.6, Hct 43.2, MCV 87.3, MCH 29.5, MCHC 33.8, RDW 12.6, Plt Count 194, MPV 11.2, Immature Gran % (Auto) 0.40, Immature Gran # (Auto) 0.03, Neutrophils % 72.6, Lymphocytes % 18.1 L, Monocytes % 7.6, Eosinophils % 0.9, Basophils % 0.4, Nucleated RBC % 0.0, Neutrophils # 5.1, Lymphocytes # 1.27 L, Monocytes # 0.5, Eosinophils # 0.1, Absolute Basophils 0.0 07/17/18 09:00: Sodium 124 L, Plasma Sodium 134, Potassium 4.8 H, Chloride 87 L, Carbon Dioxide 18.2 L, Anion Gap 23.6 H, BUN 30 H, Creatinine 1.67 H, Est GFR (Non-Af Amer) 45 L D, BUN/Creatinine Ratio 18.0, Random Glucose 701 H*, Calcium 9.2, Calcium Adj for Albumin 8.6, Total Bilirubin 0.9, AST 28, ALT 32, Alkaline Phosphatase 152, Troponin I Less than 0.017, Total Protein 8.7 H, Albumin 4.3 07/17/18 09:49: Urine Color Yellow, Urine Appearance Clear, Urine pH 5.5, Ur Specific [place] <=1.005, Urine Protein Negative, Urine Glucose (UA) >=1000 H, Urine Ketones 15, Urine Blood 5 H, Urine Nitrate Negative, Urine Bilirubin Negative, Urine Urobilinogen Normal, Ur Leukocyte Esterase Negative, Urine RBC 0-5, Urine WBC 0-5, Ur Epithelial Cells 0-5, Urine Bacteria None seen, Urine Culture Comments No culture indicated 07/17/18 09:58: VBG pH 7.372 07/17/18 09:58: Serum Ketones Positive - 20mg/dl H 07/17/18 15:03: Troponin I Less than 0.017 07/18/18 05:10: Sodium 135, Plasma Sodium 137, Potassium 3.7 D, Chloride 102, Carbon Dioxide 24.6, Anion Gap 12.1, BUN 26 H, Creatinine 1.05, Est GFR (Non-Af Amer) 77 D, BUN/Creatinine Ratio 24.8 H, Random Glucose 253 H D, Calcium 8.2, Calcium Adj for Albumin 8.4, Total Bilirubin 0.5, AST 47, ALT 34, Alkaline Phosphatase 123, Total Protein 7.1, Albumin 3.3 L, Serum Ketones Negative Discharge Location: Home Disposition: Home self-care Condition: Stable Face to Face Encounter completed per [facility] Guidelines: No Discharge Activity: Activity as tolerated Discharge Diet: Consistent carbs Referrals: Génesis Guadarrama DO [Primary Care Provider] - Prescriptions (Any new or edited meds): metFORMIN HCL [Metformin HCl] 500 mg PO BID 30 Days #60 tablet Complete Home Medications List: Complete Home Medication List: Isosorbide Mononitrate [Imdur] 60 mg PO DAILY 10/29/14 Lisinopril [Zestril] 20 mg PO DAILY 10/29/14 Nitroglycerin [Nitrostat] 0.4 mg SL Q5MIN PRN 10/29/14 Simvastatin [Zocor] 20 mg PO HS 10/29/14 amLODIPine BESYLATE [Norvasc] 5 mg PO DAILY 10/29/14 Pantoprazole Sodium [Protonix] 40 mg PO DAILY 04/08/16 Ustekinumab [Stelara] 90 mg SQ Q90D 04/09/16 Aspirin 81 mg PO DAILY 07/17/18 Betamethasone/Propylene Glyc [Betamethasone Dp Aug 0.05% Lot] 30 ml TOPICAL DAILY 07/17/18 Citalopram Hydrobromide [Citalopram HBr] 20 mg PO DAILY 07/17/18 Gabapentin [Neurontin] 300 mg PO TID 07/17/18 Metoprolol Succinate [Toprol Xl] 25 mg PO HS 07/17/18 Naproxen Sodium [Aleve] 220 mg PO BID PRN 07/17/18 metFORMIN HCL [Metformin HCl] 500 mg PO BID 30 Days #60 tablet 07/18/18 Amb Orders for Discharge: Consult Dietitian Time Frame: 3 Days, Facility: [facility], Location: Dietary
[2018-07-18 11:39] VITALS: BP 102/68
[2018-09-02] MEDS ORDERED: USTEKINUMAB 90 MG SQ SCH (09:00)
== END 2018-07-18 12:15 | disposition home or self-care (01) ==
LOC: ER 08:28 → MS 08:28
PROVIDERS: ADMIT Family Medicine; ATTEND Family Medicine
CPT/HCPCS: 36415; 71020; 71046; 80053; 81001; 82009; 82800; 83036; 84484; 85025; 93005; 96361; 96372; 96374; 99285; G0378